=== PATIENT | female | born 1995 | race Caucasian/White ===

== ENCOUNTER 2019-05-31 11:53 | Emergency (ER) | payer BC, OTHER ==
[~2019-05-31] VITALS: Ht 154.9 cm; Wt 79.4 kg
[2019-05-31 13:47] VITALS: BP 121/71
== END 2019-05-31 13:53 | disposition home or self-care (01) ==
LOC: FSED 11:53
DX: R42 Dizziness and giddiness (principal); R11.2 Nausea with vomiting, unspecified; E16.2 Hypoglycemia, unspecified
CPT/HCPCS: 80053; 85025; 99283